=== PATIENT | female | born 1995 | race Caucasian/White ===

== ENCOUNTER 2017-01-31 08:10 | Emergency (ER) | payer OTHER ==
[~2017-01-31] VITALS: Ht 157.5 cm; Wt 82.2 kg
[~2017-01-31 08:10] MED LIST: BENADRYL25 MG PO; IBUPROFEN800 MG PO; PRENATAL TABLE1 EAC3 PO; XANAX0.5 MG PO
[2017-01-31] MEDS ORDERED: ZOLOFT50 MG PO (08:51)
[2017-01-31 09:32] LABS: EOSINOPHIL (%) 3.1 % (0-5); EOSINOPHIL COUNT 0.2 K/uL (0-0.3); IMMATURE GRANULOCYTE (%) 0.6 % (0.0-0.7); INSTRUMENT ABS NEUTROPHIL CT 2.9 K/uL; LYMPHOCYTE COUNT 1.9 K/uL (1.0-2.8); MCH 28.5 PG (29.0-34.0); MCHC 33.6 G/DL (30.0-36.0); MCV 84.8 FL (83-99); MEAN PLAT.VOLUME 10.1 uM^3 (9.5-12.4); MONOCYTE (%) 7.8 % (3-12); MONOCYTE COUNT 0.4 K/uL (0-0.8); NEUTROPHIL (%) 53.8 % (45-76); NEUTROPHIL COUNT 2.9 K/uL (1.8-6.4); PLATELET COUNT 176 K/uL (156-360); RBC DIS.WIDTH-SD 40.1 % (39-53); RED BLOOD COUNT 4.95 M/uL (3.80-5.20); WHITE BLOOD COUNT 5.4 K/uL (4.1-10.2)
[2017-01-31 09:38] LABS: D-DIMER ELISA < 150.00 ng/mLDDU (<230)
[2017-01-31 09:44] LABS: CHLORIDE 108 mEq/L (99-109); POTASSIUM 4.4 mEq/L (3.7-5.4); SODIUM 140 mEq/L (136-147)
[2017-01-31 09:46] LABS: GLUCOSE 96 mg/dL (70-99)
[2017-01-31 09:47] LABS: ANION GAP 11 MEQ/L (2-14)
[2017-01-31 09:50] LABS: GFR ESTIMATE (CALCULATED) > 59 mL/min/
[2017-01-31 09:51] LABS: UREA NITROGEN (BUN) 16 mg/dL (9-23)
[2017-01-31 09:55] LABS: TROP-I INTERPRETATION NEGATIVE; TROPONIN-I < 0.01 ng/mL (0.0-0.30)
[2017-01-31 11:10] VITALS: BP 122/77
== END 2017-01-31 11:11 | disposition home or self-care (01) ==
LOC: EME 08:10
PROVIDERS: Emergency Medicine
DX: F41.9 Anxiety disorder, unspecified (principal); R07.89 Other chest pain
CPT/HCPCS: 71020; 80048; 84484; 85025; 85379; 93005; 99281; 99284